=== PATIENT | female | born 1960 | race Caucasian/White ===

== ENCOUNTER → 2023-06-30 | Emergency (ER) | payer OTHER ==
[~2023-06-30] MED LIST: CIPROFLOXACIN HCL 500 MG TAB ONE; NA CHLORIDE 0.9% 1,000 ML ONE
[2023-06-30 15:51] LABS: Absolute Lymphocytes (CBC) 1.7 K/uL (0.7-4.9); Hematocrit 32.3 % (36.0-45.0); Lymphocytes % 20.1 % (15.3-44.8); MCV 95.6 fL (80-100); MPV 7.6 fL (7.6-11.3); Platelets 286 thou/uL (152-406); RBC Red Blood Cell Count 3.38 M/uL (3.86-4.86)
[2023-06-30 16:01] LABS: Barbiturates NEGATIVE (NEGATIVE); Benzodiazepines NEGATIVE (NEGATIVE); Cocaine NEGATIVE (NEGATIVE); METHAMPHETAM NEGATIVE (NEGATIVE); Methadone NEGATIVE (NEGATIVE); Opiates NEGATIVE (NEGATIVE); Phencyclidine NEGATIVE (NEGATIVE); THC Cannibis NEGATIVE (NEGATIVE)
[2023-06-30 16:09] LABS: Specific Gravity 1.024 (1.005-1.030); Urine Bacteria <20 /HPF (<20); Urine Bilirubin NEGATIVE (Negative); Urine Blood Negative (Negative); Urine Clarity Extremely Turbid (Clear); Urine Color Yellow (Yellow); Urine Glucose NEGATIVE (Negative); Urine Mucus Slight /HPF (None Seen); Urine Protein TRACE (Negative); Urine RBC <5 /HPF (None Seen); Urine Urobilinogen Normal (Normal); Urine pH 5.5 (5.0-7.0)
[2023-06-30 16:17] LABS: ALT/SGPT 33 U/L (13-56); AST/SGOT 26 U/L (15-37); Albumin 3.7 g/dL (3.4-5.0); Alkaline Phosphatase 110 U/L (45-117); BUN Blood Urea Nitrogen 16 mg/dL (7-18); Bicarbonate 30 mEq/L (21-32); Bilirubin Direct 0.2 mg/dL (0-0.2); Bilirubin Indirect, Calculated 0.2 mg/dL (0.2-0.8); Bilirubin Total 0.4 mg/dL (0.2-1.0); Glomerular Filtration Rate 100 ml/min (=/>90); Glucose Level 112 mg/dL (74-106); Protein, Total 7.3 g/dL (6.4-8.2); Sodium Level 138 mEq/L (136-145)
--- NOTE | 2023-06-30 16:29 | ER ---
Nurse's Notes [facility] Name: Yana Frye Age: 62 yrs Sex: Female : 1960 Arrival Date: 06/30/2023 Time: 14:35 Bed DX4 Private MD: Diagnosis: UTI/ Urinary tract infection, site not specified;Dehydration Presentation: 06/30 14:54 Chief complaint: Patient states: needs to get into rehab facility but they won't take iw her until they know she is not in withdrawals. Coronavirus screen: At this time, the client does not indicate any symptoms associated with coronavirus-19. Ebola Screen: Patient negative for fever greater than or equal to 101.5 degrees Fahrenheit, and additional compatible Ebola Virus Disease symptoms Patient denies exposure to infectious person. Patient denies travel to an Ebola-affected area in the 21 days before illness onset. No symptoms or risks identified at this time. Initial Sepsis Screen: Does the patient meet any 2 criteria? No. Patient's initial sepsis screen is negative. Does the patient have a suspected source of infection? No. Patient's initial sepsis screen is negative. Risk Assessment: Do you want to hurt yourself or someone else? Patient reports no desire to harm self or others. Onset of symptoms was June 30, 2023. 14:54 Method Of Arrival: Ambulatory iw 14:54 Acuity: FLORENTINO 3 iw Historical: - Allergies: 14:56 No Known Allergies; iw - Home Meds: 14:56 Suboxone sublingual [Active]; Prozac Oral [Active]; iw - PMHx: 14:56 Bipolar disorder; iw - PSHx: 14:56 None; iw - Immunization history:: Adult Immunizations not up to date. - Family history:: not pertinent. - Social history:: Smoking status: Patient reports the use of cigarette tobacco products, smokes one pack cigarettes per day. - Hospitalizations: : No recent hospitalization is reported. Screenin:38 [facility] ED Fall Risk Assessment (Adult) Score/Fall Risk Level 0 - 2 = Low Risk. Abuse as6 screen: Denies threats or abuse. Denies injuries from another. Nutritional screening: No deficits noted. Tuberculosis screening: No symptoms or risk factors identified. Assessment: 16:39 General: Appears in no apparent distress. unkempt, Behavior is calm, cooperative. Pain: as6 Denies pain. Respiratory: Respiratory effort is even, unlabored, Respiratory pattern is regular, symmetrical. Vital Signs: 14:54 BP 146 / 88; Pulse 77; Resp 16; Temp 98.5; Pulse Ox 95% on R/A; Weight 55.34 kg; Height iw 5 ft. 2 in. ; 16:40 BP 132 / 87; Pulse 74; Resp 18 S; Pulse Ox 100% on R/A; as6 14:54 Body Mass Index 22.31 (55.34 kg, 157.48 cm) ED Course: 14:37 Patient arrived in ED. rg4 14:38 Rocky Corey MD is Attending Physician. rn 14:56 Triage completed. iw 15:30 Inserted saline lock: 20 gauge in left antecubital area, using aseptic technique. Blood as6 collected. 16:38 Arm band placed on. as6 16:39 No provider procedures requiring assistance completed. IV discontinued, intact, as6 bleeding controlled, No redness/swelling at site. Pressure dressing applied. 16:39 Bed in low position. Call light in reach. as6 16:39 Provided Education on: abx teaching . as6 Administered Medications: 15:35 Drug: NS 0.9% IV 1000 ml IV at 1000 ml once Route: IV; Rate: 1000 ml; Site: left as6 antecubital; 16:38 Follow up: Response: No adverse reaction; IV Status: Completed infusion; IV Intake: as6 1000ml 16:38 Drug: Ciprofloxacin PO 500 mg PO once Route: PO; as6 16:38 Follow up: Response: No adverse reaction as6 Medication: 16:39 VIS not applicable for this client. as6 Intake: 16:38 IV: 1000ml; Total: 1000ml. as6 Outcome: 16:28 Discharge ordered by . rn 16:38 Discharged to home ambulatory, with friend, as6 16:38 Condition: stable 16:38 Discharge instructions given to patient, friend, Instructed on discharge instructions, follow up and referral plans. medication usage, Demonstrated understanding of instructions, follow-up care, medications, Prescriptions given X 1, 16:40 Patient left the ED. as6 Signatures: Malorie Nazario RN RN Rocky Corey MD MD rn Garcia, Rubi rg4 Huseyin Fritz RN RN as6
--- NOTE | 2023-06-30 16:29 | EDPHYS ---
Physician Documentation [facility] Name: Yana Frye Age: 62 yrs Sex: Female : 1960 Arrival Date: 06/30/2023 Time: 14:35 Bed DX4 Private MD: ED Physician Rocky Corey HPI: 06/30 15:03 This 62 yrs old Female presents to ER via Ambulatory with complaints of detox rn evaluation. 15:03 Patient and friend here for detox evaluation. Was seen by [facility] due rn to alcoholism, directed to drug rehab facilities. She picked 1 and when got there told could not take her that she needed detox first. Patient states has never had delirium tremens or serious alcohol withdrawal. Denies even ever getting the shakes. Reports in the last week had a nausea/vomiting/diarrhea bug and overall feels better. Had also run out of her Suboxone but now back on it for a week and feels much better. Reports last drink 2 days ago.. Severity of symptoms: At their worst the symptoms were very mild in the emergency department the symptoms are unchanged. The patient has not experienced similar symptoms in the past. The patient has not recently seen a physician. Historical: - Allergies: 14:56 No Known Allergies; iw - Home Meds: 14:56 Suboxone sublingual [Active]; Prozac Oral [Active]; iw - PMHx: 14:56 Bipolar disorder; iw - PSHx: 14:56 None; iw - Immunization history:: Adult Immunizations not up to date. - Family history:: not pertinent. - Social history:: Smoking status: Patient reports the use of cigarette tobacco products, smokes one pack cigarettes per day. - Hospitalizations: : No recent hospitalization is reported. ROS: 15:03 Constitutional: Negative for fever, chills, and weight loss, Eyes: Negative for injury, rn pain, redness, and discharge, Neck: Negative for injury, pain, and swelling, Cardiovascular: Negative for chest pain, palpitations, and edema, Respiratory: Negative for shortness of breath, cough, wheezing, and pleuritic chest pain, Abdomen/GI: Negative for abdominal pain, nausea, vomiting, diarrhea, and constipation, MS/Extremity: Negative for injury and deformity, Skin: Negative for injury, rash, and discoloration, Neuro: Negative for headache, weakness, numbness, tingling, and seizure, Exam: 15:03 Constitutional: This is a well developed, well nourished patient who is awake, alert, rn and in no acute distress. Eyes: Pupils equal round and reactive to light, extra-ocular motions intact. ENT: Dry mucous membranes Cardiovascular: Regular rate and rhythm. No pulse deficits. Respiratory: No increased work of breathing, no retractions or nasal flaring. Abdomen/GI: Soft, non-tender Skin: Warm, dry MS/ Extremity: Pulses equal, no cyanosis. Neurovascular intact. Full, normal range of motion. Equal circumference. Neuro: Awake and alert, GCS 15, oriented to person, place, time, and situation. Cranial nerves II-XII grossly intact. Motor strength 5/5 in all extremities. Sensory grossly intact. Cerebellar exam normal. Normal gait. Vital Signs: 14:54 BP 146 / 88; Pulse 77; Resp 16; Temp 98.5; Pulse Ox 95% on R/A; Weight 55.34 kg; Height iw 5 ft. 2 in. ; 16:40 BP 132 / 87; Pulse 74; Resp 18 S; Pulse Ox 100% on R/A; as6 14:54 Body Mass Index 22.31 (55.34 kg, 157.48 cm) iw MDM: 14:38 Patient medically screened. rn 16:26 Differential Diagnosis Dehydration, alcohol abuse, urinary tract infection, electrolyte rn disorder. Data reviewed: vital signs, nurses notes, lab test result(s), and as a result, I will discharge patient. Counseling: I had a detailed discussion with the patient and/or guardian regarding the historical points, exam findings, and any diagnostic results supporting the discharge/admit diagnosis, lab results, the need for outpatient follow up, to return to the emergency department if symptoms worsen or persist or if there are any questions or concerns that arise at home. Response to treatment: the patient's symptoms have mildly improved after treatment, and as a result, I will discharge patient. Special discussion: I discussed with the patient/guardian in detail that at this point there is no indication for admission to the hospital. It is understood, however, that if the symptoms persist or worsen the patient needs to return immediately for re-evaluation. ED course: No indication for emergent admission for detox or signs of withdrawal at this time. Drug screen and alcohol level negative. Will discharge home with antibiotics. Given information regarding send behavioral as does detox and rehab.. 06/30 14:50 Order name: Acetaminophen; Complete Time: 16:24 rn 06/30 14:50 Order name: Basic Metabolic Panel; Complete Time: 16:24 rn 06/30 14:50 Order name: CBC with Diff; Complete Time: 15:55 rn 06/30 14:50 Order name: ETOH Level; Complete Time: 16:24 rn 06/30 14:50 Order name: Hepatic Function; Complete Time: 16:24 rn 06/30 14:50 Order name: PT-INR rn 06/30 14:50 Order name: Ptt, Activated rn 06/30 14:50 Order name: Salicylate; Complete Time: 16:24 rn 06/30 14:50 Order name: Urinalysis w/ reflexes; Complete Time: 16:24 rn 06/30 14:50 Order name: Urine Drug Screen; Complete Time: 16:04 rn 06/30 14:50 Order name: EKG; Complete Time: 14:51 rn 06/30 14:50 Order name: IV Saline Lock; Complete Time: 15:30 rn 06/30 14:50 Order name: Labs collected and sent; Complete Time: 15:30 rn 06/30 14:50 Order name: Suicide Screening ([facility]); Complete Time: 16:27 rn Administered Medications: 15:35 Drug: NS 0.9% IV 1000 ml IV at 1000 ml once Route: IV; Rate: 1000 ml; Site: left as6 antecubital; 16:38 Follow up: Response: No adverse reaction; IV Status: Completed infusion; IV Intake: as6 1000ml 16:38 Drug: Ciprofloxacin PO 500 mg PO once Route: PO; as6 16:38 Follow up: Response: No adverse reaction as6 Disposition Summary: 06/30/23 16:28 Discharge Ordered Notes: Location: Home rn Problem: new rn Symptoms: have improved rn Condition: Stable rn Diagnosis - UTI/ Urinary tract infection, site not specified rn - Dehydration rn Followup: rn - With: Private Physician - When: As needed - Reason: Recheck today's complaints, Re-evaluation by your physician Discharge Instructions: - Discharge Summary Sheet rn - Dehydration, Adult rn - Urinary Tract Infection, Adult rn Forms: - Medication Reconciliation Form rn - Thank You Letter rn - Antibiotic rn radiation oncology - Prescription Opioid Use rn - Patient Portal Instructions rn - Leadership Thank You Letter rn Prescriptions: - Cipro 500 mg Oral Tablet - take 1 tablet ORAL route every 12 hours for 7 days; 14 tablet; Refills: 0, rn Product Selection Permitted Signatures: Dispatcher [employer] Malorie Gonsalez, RN Rocky Wren MD MD rn Slawson, Ashby, RN RN as6 Corrections: (The following items were deleted from the chart) 15:05 15:03 Constitutional: This is a well developed, well nourished patient who is awake, rn alert, and in no acute distress. Eyes: Pupils equal round and reactive to light, extra-ocular motions intact. ENT: Dry mucous membranes Cardiovascular: Regular rate and rhythm. No pulse deficits. Respiratory: No increased work of breathing, no retractions or nasal flaring. Skin: Warm, dry MS/ Extremity: Pulses equal, no cyanosis. Neurovascular intact. Full, normal range of motion. Equal circumference. Neuro: Awake and alert, GCS 15, oriented to person, place, time, and situation. Cranial nerves II-XII grossly intact. Motor strength 5/5 in all extremities. Sensory grossly intact. Cerebellar exam normal. Normal gait. rn 16:37 14:50 EKG - Nurse/Tech ordered. rn as6
[2023-06-30 16:56] VITALS: BP 132/87; TEMP 98.5; O2SAT 100
[2023-06-30 18:15] LABS: Protime INR 0.94
== END ==
LOC: ER 14:35
DX: N39.0 Urinary tract infection, site not specified (principal); E86.0 Dehydration; F10.20 Alcohol dependence, uncomplicated; F31.9 Bipolar disorder, unspecified
CPT/HCPCS: 85025; 81001; 80048; 36415; 85610; 80076; 85730; 80307; 80143; 80179; 82077; J7030